=== PATIENT | male | born 1950 | race Caucasian/White ===

== ENCOUNTER 2020-11-29 09:52 | Day surgery (SDC) | payer BC, MEDICARE ==
[2020-11-27 15:07] VITALS: BMI 24.6
[~2020-11-29 09:52] MED LIST: LACTATED RINGERS 1,000 ML IV SCH
[2020-11-29 10:16] VITALS: RESP 18; TEMP 98.1
[2020-11-29] MEDS ORDERED: LACTATED RINGERS 1,000 ML IV ONE (10:17)
[2020-11-29] MEDS ORDERED: PROPOFOL 10 MG/ML 20 ML VIAL IV ONE (11:38)
--- NOTE | 2020-11-29 11:43 | P.GSHP ---
History of Present Illness H&P Date: 11/29/20 Chief Complaint: Change in bowel habits, diarrhea 's is a 62-year-old male presents today for colonoscopy. She's with diarrhea and change in bowel habits. Past Medical History Additional Past Medical History / Comment(s): diarrhea, asthma as child, History of Any Multi-Drug Resistant Organisms: None Reported Past Surgical History: Hernia Repair, Orthopedic Surgery Additional Past Surgical History / Comment(s): rt shoulder rotator cuff, Past Anesthesia/Blood Transfusion Reactions: No Reported Reaction Smoking Status: Former smoker - Past Family History Mother Family Medical History: Cancer Father Family Medical History: Cancer Medications and Allergies Home Medications Medication Instructions Recorded Confirmed Type Acetaminophen Tab [Tylenol] 650 mg PO DIRECTED PRN 11/27/20 11/27/20 History Emergency Powder 1 applicate PO DAILY 11/27/20 11/27/20 History Ibuprofen 200 mg PO Q8H PRN 11/27/20 11/27/20 History Allergies Allergy/AdvReac Type Severity Reaction Status Date / Time Penicillins Allergy Unknown Verified 11/27/20 14:57 pollen extracts Allergy Unknown Verified 11/27/20 15:12 dust Allergy Unknown Uncoded 11/27/20 14:58 Surgical - Exam Vital Signs Temp Pulse Resp BP Pulse Ox 98.1 F 78 18 177/71 98 11/29/20 10:16 11/29/20 10:16 11/29/20 10:16 11/29/20 10:16 11/29/20 10:16 - General well developed, well nourished, no distress - Eyes PERRL - ENT normal pinna - Neck no masses - Respiratory normal expansion - Cardiovascular Rhythm: regular - Abdomen Abdomen: soft, non tender Assessment and Plan Assessment: Diarrhea. We'll perform Colonoscopy
--- NOTE | 2020-11-29 11:54 | P.OP ---
Date of Procedure: 11/29/20 Preoperative Diagnosis: Diarrhea Postoperative Diagnosis: Diverticulosis Procedure(s) Performed: Colonoscopy Anesthesia: MAC Surgeon: Gideon Simms Pathology: none sent Condition: stable Disposition: PACU Description of Procedure: The patient's placed on the endoscopy table in the lateral position. He received IV sedation. Digital rectal exam was performed which revealed no abnormalities. The flexible colonoscope was then placed patient anus and passed throughout the entire colon. The ileocecal valve was visualized. The cecum, ascending and transverse colon appeared normal. The descending; there is extensive diverticular changes. The scope was then brought back the rectum and this appeared normal. Scope was withdrawn for patient.
[2020-11-29 12:25] VITALS: BP 154/85; PULSE 76
== END 2020-11-29 12:47 | disposition home or self-care (01) ==
LOC: ORWHC2ENDO 09:52
PROVIDERS: ATTEND Surgery
DX: K57.90 Diverticulosis of intestine, part unspecified, without perforation or abscess without bleeding (principal); Z87.891 Personal history of nicotine dependence; Z88.0 Allergy status to penicillin
CPT/HCPCS: 45378; J2704

== ENCOUNTER → 2024-10-27 | Outpatient (CLI) | payer MEDICARE, OTHER ==
--- NOTE | 2024-10-27 09:31 | US ---
EXAMINATION TYPE: US prostate transrectal DATE OF EXAM: 10/27/2024 COMPARISON: NONE CLINICAL INDICATION: Male, 74 years old with history of R97.2 ELEVATED PSA; PSA TECHNIQUE: Grayscale and color Doppler imaging of the prostate gland. This examination was performed using the transrectal probe. EXAM MEASUREMENTS: Gland Size: 6.5 x 3.4 x 4.7 cm Volume: 54.5 ml Predicted PSA: 6.5 ng/ml Actual PSA (if available):4.154 ng/ml No masses noted within the peripheral zone IMPRESSION: 1. No suspicious masses visualized. 2. Note that prostate MRI is a more sensitive exam for the detection of clinically significant prost ate adenocarcinoma. Predicted PSA = volume x 0.12 ng/ml Calculated Volume = 0.5236 x L x W x [facility], , 10/27/2024 9:29 AM
== END | disposition home or self-care (01) ==
LOC: RADUSWWP 08:04
PROVIDERS: ATTEND Family Medicine
DX: R97.20 Elevated prostate specific antigen [PSA] (principal)
CPT/HCPCS: 76872